=== PATIENT | male | born 1990 | race African-American/Black ===

== ENCOUNTER 2016-10-10 01:21 | Emergency (ER) | payer OTHER ==
[~2016-10-10] VITALS: Ht 177.8 cm; Wt 72.6 kg
[~2016-10-10 01:21] MED LIST: IBU600 MG PO; IBUPROFEN600 M1 PO; PERCOCET 5-3251 EACH PO
[2016-10-10 01:24] VITALS: BP 132/86
--- NOTE | 2016-10-10 01:52 | ED NECK/BACK PAIN COMPLAINT ---
History of Present Illness General Chief Complaint: Neck/Upper Back Pain/Injury Stated Complaint: BIBA, BACK PAIN Source: patient Exam Limitations: no limitations Vital Signs & Intake/Output Vital Signs & Intake/Output Vital Signs Date Time Temp Pulse Resp B/P B/P Pulse O2 O2 Flow FiO2 Mean Ox Delivery Rate 10/10 0124 97.0 66 18 132/86 100 Room Air Allergies Coded Allergies: shellfish derived (U 10/10/16) Reconcile Medications Ibuprofen 800 MG TABLET 1 TAB PO TID PRN PAIN Triage Note: PT STATES HE WAS "MANHANDLED" BY [employer] C/O LOW BACK PAIN Triage Nurses Notes Reviewed? yes Onset: Abrupt Duration: hour(s):, waxing and waning Timing: single episode today Location: lumbar spine Radiation: none Context: "I got roughed up by the police and they twisted my back." Method of Injury: twisted Loss of Consciousness: no loss of consciousness Modifying Factors: movement, rest Associated Symptoms: left lower back pain HPI: 26-year-old gentleman Healthy presents with left lower lumbar back pain. He states that at approximately 8 PM, he was arrested by the police. He states, "they brought me. The twisted my back." He notes that he was not thrown on the ground. He received no direct contusion or blow to his back. He is able to ambulate fine. He has no numbness tingling or radiation of his pain. His no change in sensation, bowel or bladder. He is otherwise well. Past History Travel History Traveled to [place] past 21 day No Medical History Any Pertinent Medical History? see below for history Neurological: NONE EENT: NONE Cardiovascular: NONE Respiratory: asthma Gastrointestinal: NONE Hepatic: NONE Renal: NONE Musculoskeletal: NONE Psychiatric: NONE Endocrine: NONE Blood Disorders: NONE Cancer(s): NONE Surgical History Surgical History: non-contributory Psychosocial History What is your primary language Turkmen Tobacco Use: Never used Family History Hx Contributory? No Review of Systems Review of Systems Constitutional: Reports: no symptoms. Eyes: Reports: no symptoms. Ears, Nose, Throat, Mouth: Reports: no symptoms. Respiratory: Reports: no symptoms. Cardiovascular: Reports: no symptoms. Gastrointestinal/Abdominal: Reports: no symptoms. Musculoskeletal: Reports: no symptoms. Skin: Reports: no symptoms. Neurological/Psychological: Reports: no symptoms. All Other Systems: Reviewed and Negative Physical Exam Physical Exam General Appearance: well developed/nourished, mild distress Head: atraumatic Eyes: Bilateral: normal appearance. Ears, Nose, Throat, Mouth: hearing grossly normal Neck: normal inspection, supple, full range of motion, normal alignment, no midline tenderness Respiratory: normal breath sounds Cardiovascular: regular rate/rhythm Gastrointestinal: soft, non-tender Back: normal inspection, muscle spasm, no vertebral tenderness, left lower lumbar muscle spasm. No focal bony tenderness Extremities: normal range of motion Neurologic/Psych: awake, alert, oriented x 3, normal mood/affect Skin: intact, normal color, warm/dry Comments: Deep tendon reflexes, light touch, strength in lower extremities are intact and normal. Progress Differential Diagnosis: muscle spasm versus herniation versus other Plan of Care: Current Medications Sig/Kumar Start time Last Medication Dose Stop Time Status Admin Ibuprofen 800 MG ONCE ONE 10/10 214 UNVr (Motrin) 10/11 215 Departure Departure Disposition: HOME OR SELF CARE Condition: Stable Clinical Impression Primary Impression: Back pain Referrals: PATIENT HAS NO PRIMARY CARE DR (PCP/Family) Departure Forms: Customer Survey General Discharge Information Prescriptions: Current Visit Scripts Ibuprofen 1 TAB PO TID PRN PAIN #30 TAB Comments Patient with benign exam and focal musculoskeletal spasm. Normal neurologic exam. We'll treat patient conservatively with NSAIDs. Close follow-up advised.
[2016-10-10] MEDS ORDERED: IBUPROFEN800 M1 PO (02:01)
== END 2016-10-10 02:20 ==
LOC: ERH 01:21
DX: M54.5 Low back pain (principal)